=== PATIENT | female | born 1975 | race Caucasian/White ===

== ENCOUNTER 2017-01-30 10:14 | Emergency (ER) | payer BC ==
[2017-01-30 10:27] VITALS: BP 122/67
--- NOTE | 2017-01-30 11:56 | RAD ---
INDICATION: Left leg injury COMPARISON: None TECHNIQUE: AP and lateral views were obtained. FINDINGS: The bony structures, joint spaces, and soft tissues are normal for age. IMPRESSION: NEGATIVE EXAMINATION.
--- NOTE | 2017-01-30 12:36 | ED ---
Lower Extremity - HPI Summary HPI Summary: Patient presents to the ED with left goldstein pain s/p fall this morning. No bleeding is noted. Small hematoma with discoloration just inferior to the left knee. Denies numbness, tingling. Denies temperature changes to the lower extremity. Pain is 5/10, constant and better with motrin. No previous injury to the leg. She is otherwise healthy and denies anticoagulants. Denies hitting head or LOC. - History of Current Complaint Chief Complaint: EDExtremityLower Stated Complaint: FALL/LT LEG PAIN Hx Obtained From: Patient Hx Last Menstrual Period: 01/22/16 Mechanism Of Injury: Direct Blow Onset of Pain: Immediate Onset/Duration: Minutes Severity Initially: Mild Severity Currently: Mild Pain Intensity: 7 Pain Scale Used: 0-10 Numeric Timing: Constant Location: Is Discrete @ - left goldstein pain Associated Signs And Symptoms: Positive: Bruising Aggravating Factor(s): Standing, Ambulation Alleviating Factor(s): Rest Able to Bear Weight: Yes - Risk Factors Gout Risk Factors: Negative DVT Risk Factors: Negative Septic Arthritis Risk Factor: Negative - Allergies/Home Medications Allergies/Adverse Reactions: Allergies Allergy/AdvReac Type Severity Reaction Status Date / Time Chlorhexidine Allergy Mild Rash Verified 06/15/16 10:07 [From ChloraPrep One Step] Isopropyl Alcohol Allergy Mild Rash Verified 06/15/16 10:07 [From ChloraPrep One Step] Amoxicillin Allergy Vomiting Verified 06/15/16 10:07 Latex Allergy Rash Verified 06/15/16 10:07 Tramadol Allergy Vomiting Verified 06/15/16 10:07 Adhesive Tape AdvReac NASTY RASH Verified 06/15/16 10:07 Codeine AdvReac Nausea Verified 06/15/16 10:07 VOMITING PAIN MEDICATION AdvReac Severe Nausea And Uncoded 06/15/16 10:07 Vomiting PMH/Surg Hx/FS Hx/Imm Hx Previously Healthy: Yes Endocrine/Hematology History: Denies: Hx Diabetes, Hx Thyroid Disease Cardiovascular History: Denies: Hx Hypertension, Hx Pacemaker/ICD Respiratory History: Reports: Other Respiratory Problems/Disorders - DX WITH WHOOPING COUGH Denies: Hx Asthma, Hx Chronic Obstructive Pulmonary Disease (COPD) GI History: Reports: Other GI Disorders - HX OF INTERNAL HEMORRHOID, NO PROBLEMS NOW Denies: Hx Ulcer History: Denies: Hx Renal Disease Musculoskeletal History: Denies: Hx Rheumatoid Arthritis, Hx Osteoporosis Sensory History: Reports: Hx Contacts or Glasses - BOTH Denies: Hx Hearing Aid Opthamlomology History: Reports: Hx Contacts or Glasses - BOTH Psychiatric History: Denies: Hx Panic Disorder - Surgical History Surgery Procedure, Year, and Place: 2 C-SECTIONS [place], [place]. UMBILICAL HERNIA [id number] x3. RIGHT LOWER LEG FX 1982; -NO METAL Hx Anesthesia Reactions: No - Immunization History Hx Pertussis Vaccination: No Immunizations Up to Date: Unable to Obtain/Confirm Infectious Disease History: No Infectious Disease History: Denies: Hx Clostridium Difficile, Hx Hepatitis, Hx Human Immunodeficiency Virus (HIV), Hx of Known/Suspected MRSA, Hx Shingles, Hx Tuberculosis, Hx Known/ Suspected VRE, Hx Known/Suspected VRSA, History Other Infectious Disease, Traveled Outside the in Last 30 Days - Family History Known Family History: Positive: Hypertension Family History: no parts puller issues in family history - Social History Occupation: Employed Part-time Lives: With Family Alcohol Use: Occasionally Hx Substance Use: No Substance Use Type: Reports: None Hx Tobacco Use: Yes Smoking Status (MU): Former Smoker Type: Cigarettes Amount Used/How Often: SOCIALLY IN COLLEGE ONLY [id number], 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 Review of Systems Constitutional: Negative Negative: Fever, Chills, Fatigue Eyes: Negative Cardiovascular: Negative Respiratory: Negative Genitourinary: Negative Positive: no symptoms reported, see HPI Positive: Arthralgia - left goldstein pain Skin: Negative Neurological: Negative All Other Systems Reviewed And Are Negative: Yes Physical Exam Triage Information Reviewed: Yes Vital Signs On Initial Exam: Initial Vitals Temp Pulse Resp BP Pulse Ox 99.4 F 86 20 122/67 99 01/30/17 10:25 01/30/17 10:25 01/30/17 10:25 01/30/17 10:25 01/30/17 10:25 Vital Signs Reviewed: Yes Appearance: Positive: Well-Appearing, Well-Nourished Skin: Positive: Warm, Skin Color Reflects Adequate Perfusion, Other - ecchymosis just distal to the left knee Head/Face: Positive: Normal Head/Face Inspection Eyes: Positive: EOMI, ALEKSANDRA, Conjunctiva Clear Neck: Positive: Supple, No Lymphadenopathy Respiratory/Lung Sounds: Positive: Clear to Auscultation, Breath Sounds Present Cardiovascular: Positive: RRR, Pulses are Symmetrical in both Upper and Lower Extremities Musculoskeletal: Positive: Pain @ - left goldstein pain Neurological: Positive: Normal, Sensory/Motor Intact, Alert, Oriented to Person Place, Time, Speech Normal Psychiatric: Positive: Normal AVPU Assessment: Alert Diagnostics - Vital Signs Vital Signs Temp Pulse Resp BP Pulse Ox 01/30/17 10:25 99.4 F 86 20 122/67 99 - Laboratory Lab Statement: Any lab studies that have been ordered have been reviewed, and results considered in the medical decision making process. Lower Extremity Course/Dx - Course Course Of Treatment: Patient presents to the ED with left goldstein pain s/p fall this morning. Notes to some ecchymosis, slight swelling and small laceation which is superficial and does not need repair. Bleeding is controlled at arrival. 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 She understands plan and is OK with discharge. - Diagnoses Differential Diagnosis/HQI/PQRI: Positive: Contusion Provider Diagnoses: Contusion Discharge - Discharge Plan Condition: Stable Disposition: HOME Patient Education Materials: Contusion in Adults (ED) Referrals: Marisa Mendoza MD [Primary Care Provider] - Additional Instructions: Ibuprofen 600mg three times daily Stay off the leg until you feel less discomfort Ice Elevate Bear weight as tolerated Images - Images Full Body (No Head): 1 - left goldstein pain
== END 2017-01-30 12:46 | disposition home or self-care (01) ==
LOC: ED 10:14
DX: S80.12XA Contusion of left lower leg, initial encounter (principal); M79.605 Pain in left leg; Z87.891 Personal history of nicotine dependence; W19.XXXA Unspecified fall, initial encounter; Y93.9 Activity, unspecified; Y92.9 Unspecified place or not applicable
CPT/HCPCS: 99281

== ENCOUNTER 2017-12-12 07:11 | Emergency (ER) | payer BC, OTHER ==
[2017-12-12 07:23] VITALS: BP 103/69
--- NOTE | 2017-12-12 07:45 | UC ---
Bite Injury/Animal HPI - HPI Summary HPI Summary: A 42 y/o F presents to [facility] s/p bat exposure 3 weeks ago on 11/23/17. Pt was advised by her doctor to get rabies treatment. The pt woke up in the middle of the night and her cat had brought a bat into her bedroom. She's unsure if the bat was caught by the cat inside or outside. She thought the bat appeared healthy. Pt did handle the bat when it landed on her and when she removed it from the room. She saw no visible bites on herself. She does state that there has been a confirmed bat with rabies in the area she lives. - History of Current Complaint Chief Complaint: UCBiteInjury Stated Complaint: RABIES Time Seen by Provider: 12/12/17 07:37 Hx Obtained From: Patient Hx Last Menstrual Period: 01/22/16 Severity Currently: None Pain Intensity: 0 Pain Scale Used: 0-10 Numeric Onset/Duration: Lasting Weeks, Still Present Type of Bite: Wild Animal - Bat Animal Available for Observation: No - Allergies/Home Medications Allergies/Adverse Reactions: Allergies Allergy/AdvReac Type Severity Reaction Status Date / Time amoxicillin Allergy Vomiting Verified 12/12/17 07:25 codeine Allergy Nausea And Verified 12/12/17 07:25 Vomiting latex Allergy Rash Verified 12/12/17 07:25 tramadol Allergy Vomiting Verified 12/12/17 07:25 Adhesive Tape AdvReac NASTY RASH Verified 12/12/17 07:25 chloraprep Allergy Rash Uncoded 12/12/17 07:25 PAIN MEDICATION AdvReac Severe Nausea And Uncoded 12/12/17 07:25 Vomiting PMH/Surg Hx/FS Hx/Imm Hx Previously Healthy: No Cardiovascular History: Other Other Cardiovascular History: neg: HTN; pos: benign heart murmur Other Respiratory History: neg: COPD - Surgical History Surgical History: Yes Surgery Procedure, Year, and Place: 2 C-SECTIONS [place], [place]. UMBILICAL HERNIA [phone] x3. 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 When Did the Patient Quit Smoking/Using Tobacco: 2000 Review of Systems Constitutional: Other - neg: fever Respiratory: Other - neg: cough All Other Systems Reviewed And Are Negative: Yes Physical Exam - Summary Physical Exam Summary: General: well-appearing, no pain distress Skin: warm, color reflects adequate perfusion, dry; some abrasions on bilat knuckles Head: normal Eyes: EOMI, ALEKSANDRA ENT: normal Neck: supple, nontender Respiratory: CTA, breath sounds present Cardiovascular: RRR Abdomen: soft, nontender Bowel: present Musculoskeletal: normal, strength/ROM intact Neurological: sensory/motor intact, A&O x3 Psychological: affect/mood appropriate Triage Information Reviewed: Yes Vital Signs: Initial Vital Signs Temp 97.7 F 12/12/17 07:19 Pulse 86 12/12/17 07:19 Resp 18 12/12/17 07:19 BP 103/69 12/12/17 07:19 Pulse Ox 99 12/12/17 07:19 Vital Signs Reviewed: Yes Bite Injury Course/Dx - Course Course Of Treatment: BP noted. Medications reviewed. Allergies noted. GIVEN RIG AND FIRST RABIES VACCINE IN CLINIC. - Differential Dx/Diagnosis Provider Diagnoses: RABIES VACCINE AND RIG. POSSIBLE RABIES EXPOSURE Discharge - Sign-Out/Discharge Documenting (check all that apply): Patient Departure - DC All imaging exams completed and their final reports reviewed: No Studies - Discharge Plan Condition: Stable Disposition: HOME Patient Education Materials: Rabies Immune Globulin (By injection), Rabies (ED) , Rabies Vaccine (ED) Referrals: [facility] [Outside] Marisa Mendoza MD [Primary Care Provider] - Additional Instructions: FOLLOW UP [facility]. GET RECHECKED FOR ANY WORSENING OF YOUR CONDITION OR QUESTIONS OR CONCERNS. - Billing Disposition and Condition Condition: STABLE Disposition: Home - Attestation Statements Document Initiated by Scribe: Yes Documenting Scribe: Keyla Brown Provider For Whom Nicolibgalen is Documenting (Include Credential): Leobardo Chao MD Scribe Attestation: Keyla Carrasco scribed for Leobrado Chao MD on 12/12/17 at 0930. Scribe Documentation Reviewed: Yes Provider Attestation: The documentation as recorded by the Keyla briscoe accurately reflects the service I personally performed and the decisions made by me, Leobardo Chao MD
[2017-12-12] MEDS ORDERED: Rabies VIRUS VACCINE (Imovax)* 2.5 UNIT/ML 1 ML IM ONE (08:05)
[2017-12-12] MEDS ORDERED: Rabies Immune Globulin 10 ML* 150 UNIT/ML VIAL IM ONE (08:05)
[2017-12-12] MEDS ORDERED: Tetan/Diph/Pertus SYR(Tdap)* 0.5 ML SYR(BOOSTRIX) use SYR IM ONE (08:07)
== END 2017-12-12 08:55 | disposition home or self-care (01) ==
LOC: UCEAST 07:11
DX: Z20.3 Contact with and (suspected) exposure to rabies (principal); Z88.0 Allergy status to penicillin; Z23 Encounter for immunization; Z88.5 Allergy status to narcotic agent; Z91.040 Latex allergy status; Z91.09 Other allergy status, other than to drugs and biological substances; Z88.8 Allergy status to other drugs, medicaments and biological substances; Z88.6 Allergy status to analgesic agent; Z87.891 Personal history of nicotine dependence
CPT/HCPCS: 90375; 90471; 90472; 90715; 96372; 99211; G0463

== ENCOUNTER 2018-03-27 12:10 | Emergency (ER) | payer BC ==
[2018-03-27 14:24] VITALS: BP 116/72
--- NOTE | 2018-03-27 22:59 | UC ---
Hip/Pelvis Pain - HPI Summary HPI Summary: WHILE RUNNING LAST NIGHT PT HEARD AND FELT A POP IN HER RIGHT HIP. HAD IMMEDIATE , SEVERE PAIN AND WAS BARELY ABLE TO MAKE IT BACK HOME. PAIN IMPROVED WITH IBUPROFEN. DUE TO SEVERITY OF PAIN PT IS CONCERNED ABOUT A POSSIBLE MUSCLE TEAR. IS REQUESTING AN ULTRASOUND.DAY - History Of Current Complaint Chief Complaint: UCLowerExtremity Stated Complaint: HIP INJURY Time Seen by Provider: 03/27/18 14:34 Hx Obtained From: Patient Hx Last Menstrual Period: 03/16/18 Onset/Duration: Sudden Onset, Lasting Days - 1 DAY, Still Present Timing: Constant Severity Initially: Moderate Severity Currently: Moderate Pain Intensity: 0 Pain Scale Used: 0-10 Numeric Location: Discrete At: - RIGHT LATERAL HIP Character Of Pain: Sharp Aggravating Factor(s): Weight Bearing Alleviating Factor(s): OTC Medications - IBUPROFEN Associated Signs And Symptoms: Negative: Swelling, Redness, Bruising, Weakness, Knee Pain - Allergies/Home Medications Allergies/Adverse Reactions: Allergies Allergy/AdvReac Type Severity Reaction Status Date / Time amoxicillin Allergy Vomiting Verified 03/27/18 14:27 codeine Allergy Nausea And Verified 03/27/18 14:27 Vomiting latex Allergy Rash Verified 03/27/18 14:27 tramadol Allergy Vomiting Verified 03/27/18 14:27 Adhesive Tape AdvReac NASTY RASH Verified 03/27/18 14:27 narcotics Allergy Severe n/v Uncoded 03/27/18 14:27 chloraprep Allergy Rash Uncoded 03/27/18 14:27 PMH/Surg Hx/FS Hx/Imm Hx Previously Healthy: Yes - Surgical History Surgical History: Yes Surgery Procedure, Year, and Place: 2 C-SECTIONS [place]. UMBILICAL HERNIA [id number] x3. 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 Negative: Arthralgia, Decreased ROM, Edema Physical Exam Triage Information Reviewed: Yes Appearance: Well-Nourished, Pain Distress - MODERATE PAIN WITH WEIGHT BEARING AND AMBULATION Vital Signs: Initial Vital Signs Temp 98 F 03/27/18 14:17 Pulse 68 03/27/18 14:17 Resp 16 03/27/18 14:17 BP 116/72 03/27/18 14:17 Pulse Ox 100 03/27/18 14:17 Vital Signs Reviewed: Yes Eyes: Positive: Conjunctiva Clear ENT: Positive: Hearing grossly normal Neck: Positive: Supple Respiratory: Positive: No respiratory distress, No accessory muscle use Cardiovascular: Positive: Pulses Normal Abdomen Description: Positive: Soft Musculoskeletal: Positive: ROM Intact, No Edema, Other: - FOCAL TENDERNESS RIGHT ANTEROLATERAL HIP. NOT TENDER OVER GREATER TROCHANTER, INGUINAL MUSCLE OR ILIAC CREST. NO BRUISING OR SWELLING Neurological: Positive: Alert Psychological: Positive: Age Appropriate Behavior Skin: Negative: Rashes Hip Injury Course/Dx - Course Course Of Treatment: PATIENT IS CONCERNED ABOUT A TFL INJURY AND IS REQUESTING AN ULTRASOUND. UNABLE TO PERFORM THIS EXAM IN THE . RECOMMENDED [facility] EVALUATION. APPOINTMENT MADE FOR PATIENT WITH DR. PERSON TOMORROW AT 1:30 PM. IN THE MEANTIME PATIENT WILL TAKE OTC ANTI-INFLAMMATORIES FOR DISCOMFORT. REST AND ICE. - Differential Dx/Diagnosis Provider Diagnosis: Acute right hip pain Discharge - Sign-Out/Discharge Documenting (check all that apply): Patient Departure All imaging exams completed and their final reports reviewed: No Studies - Discharge Plan Condition: Stable Disposition: HOME Patient Education Materials: Hip Pain (ED) Referrals: Marisa Mendoza MD [Primary Care Provider] - If Needed Martha Person MD [Medical Doctor] - (YOU HAVE AN APPT TOMORROW AT 1:30PM) Additional Instructions: GIVEN YOUR CONCERN FOR TFL INJURY WE HAVE SCHEDULED AN APPT FOR YOU TOMORROW WITH DR. PERSON FROM [facility]. SHE WILL BE ABLE TO DO A COMPLETE MUSCULOSKELETAL EXAM AND DISCUSS EVALUATION AND TREATMENT OPTIONS. IN THE MEANTIME - REST, OTC IBUPROFEN NEEDED FOR DISCOMFORT. - Billing Disposition and Condition Condition: STABLE Disposition: Home
== END 2018-03-27 15:29 | disposition home or self-care (01) ==
LOC: UCEAST 12:10
DX: M25.551 Pain in right hip (principal); Y93.02 Activity, running; Z88.0 Allergy status to penicillin; Z88.5 Allergy status to narcotic agent; Z87.891 Personal history of nicotine dependence
CPT/HCPCS: 99212; G0463

== ENCOUNTER 2019-05-19 12:08 | Emergency (ER) | payer BC ==
[2019-05-19 14:02] LABS: ABS Basophils 0.1 10^3/ul (0-0.2); ABS Eosinophils 0.1 10^3/ul (0-0.6); ABS Lymphocytes 1.3 10^3/ul (1.0-4.8); ABS Monocytes 0.4 10^3/ul (0-0.8); ABS Neutrophils 6.2 10^3/ul (1.5-7.7); Eosinophil % 1.1 %; Hematocrit 40 % (35-47); Hemoglobin 13.7 g/dL (12.0-16.0); Lymphocyte % 16.2 %; Mean Corpuscular HGB Conc 34 g/dL (31-36); Mean Corpuscular Hemoglobin 30 pg (27-31); Mean Corpuscular Volume 88 fL (80-97); Mean Platelet Volume 8.4 fL (7.4-10.4); Platelet Count 252 10^3/uL (150-450); Red Blood Count 4.61 10^6 /uL (3.70-4.87); Red Cell Distribution Width 13 % (10-15)
[2019-05-19 14:29] LABS: ALT 19 U/L (7-52); AST 18 U/L (13-39); Albumin 4.5 g/dL (3.2-5.2); Albumin/Globulin Ratio 1.9 (1-3); Alkaline Phosphatase 45 U/L (34-104); Anion Gap 4 mmol/L (2-11); BUN/Creatinine Ratio 18.6 (8-20); Blood Urea Nitrogen 13 mg/dL (6-24); C Reactive Protein < 1.00 mg/L (<8.01); CO2 Carbon Dioxide 28 mmol/L (22-32); Calcium 9.3 mg/dL (8.6-10.3); Chloride 105 mmol/L (101-111); EGFR Non-African American 91.8 (>60); Globulin 2.4 g/dL (2-4); Glucose 125 mg/dL (70-100); Potassium 3.8 mmol/L (3.5-5.0); Sodium 137 mmol/L (135-145); Total Protein 6.9 g/dL (6.4-8.9)
[2019-05-19 14:31] LABS: HCG Pregnancy < 0.60 mIU/mL
--- NOTE | 2019-05-19 15:49 | ED ---
Abdominal Pain/Female - HPI Summary HPI Summary: Patient complains of right lower quadrant pain 2 days, intermittent low-grade fever, fatigue. States history of ovarian cysts. Denies cough, sore throat, CP , SOB, N/3/D, change in urine, change in BM, vaginal symptoms. Denies medical history. Abdominal surgical history is hernia repair 2, laparoscopic 1. - History of Current Complaint Chief Complaint: EDOBProblems Stated Complaint: LOWER ABD PAIN/LOW GRADE FEVER PER PT Time Seen by Provider: 05/19/19 15:35 Hx Obtained From: Patient Hx Last Menstrual Period: 03/16/18 Onset/Duration: Gradual Onset, Lasting Days Timing: Constant Severity Initially: Severe Severity Currently: None Pain Intensity: 0 Pain Scale Used: 0-10 Numeric Location: Discrete At: RLQ Radiates: No Character: Sharp Aggravating Factor(s): Nothing Alleviating Factor(s): Spontaneous Resolution Associated Signs and Symptoms: Positive: Negative Allergies/Adverse Reactions: Allergies Allergy/AdvReac Type Severity Reaction Status Date / Time amoxicillin Allergy Vomiting Verified 05/19/19 12:15 codeine Allergy Nausea And Verified 05/19/19 12:15 Vomiting latex Allergy Rash Verified 05/19/19 12:15 tramadol Allergy Vomiting Verified 05/19/19 12:15 Adhesive Tape AdvReac NASTY RASH Verified 05/19/19 12:15 narcotics Allergy Severe n/v Uncoded 05/19/19 12:15 chloraprep Allergy Rash Uncoded 05/19/19 12:15 PMH/Surg Hx/FS Hx/Imm Hx Endocrine/Hematology History: Denies: Hx Diabetes, Hx Thyroid Disease Cardiovascular History: Denies: Hx Hypertension, Hx Pacemaker/ICD Respiratory History: Reports: Other Respiratory Problems/Disorders - DX WITH WHOOPING COUGH Denies: Hx Asthma, Hx Chronic Obstructive Pulmonary Disease (COPD) GI History: Reports: Other GI Disorders - HX OF INTERNAL HEMORRHOID, NO PROBLEMS NOW Denies: Hx Ulcer History: Denies: Hx Renal Disease Musculoskeletal History: Denies: Hx Rheumatoid Arthritis, Hx Osteoporosis Sensory History: Reports: Hx Contacts or Glasses - BOTH Opthamlomology History: Reports: Hx Contacts or Glasses - BOTH EENT History: Denies: Hx Deafness Neurological History: Denies: Hx Dementia Psychiatric History: Denies: Hx Panic Disorder - Cancer History Hx Chemotherapy: No Hx Radiation Therapy: No - Surgical History Surgery Procedure, Year, and Place: 2 C-SECTIONS [place], [place]. UMBILICAL HERNIA [phone] x3. RIGHT LOWER LEG FX 1982; -NO METAL Hx Anesthesia Reactions: No Infectious Disease History: No Infectious Disease History: Denies: Hx Clostridium Difficile, Hx Hepatitis, Hx Human Immunodeficiency Virus (HIV), Hx of Known/Suspected MRSA, Hx Shingles, Hx Tuberculosis, Hx Known/ Suspected VRE, Hx Known/Suspected VRSA, History Other Infectious Disease, Traveled Outside the [place] in Last 30 Days - Family History Known Family History: Positive: Hypertension, Other - breast [place] Family History: no copyright clerk issues in family history - Social History Alcohol Use: Occasionally Hx Substance Use: No Substance Use Type: Reports: None Hx Tobacco Use: Yes Smoking Status (MU): Former Smoker Type: Cigarettes Amount Used/How Often: SOCIALLY IN COLLEGE ONLY [id number], 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 Review of Systems Constitutional: Negative Eyes: Negative ENT: Negative Cardiovascular: Negative Respiratory: Negative Positive: Abdominal Pain Genitourinary: Negative Musculoskeletal: Negative Skin: Negative Neurological: Negative Psychological: Normal All Other Systems Reviewed And Are Negative: Yes Physical Exam Triage Information Reviewed: Yes Vital Signs On Initial Exam: Initial Vitals Temp Pulse Resp BP Pulse Ox 99.1 F 86 19 129/82 98 05/19/19 12:12 05/19/19 12:12 05/19/19 12:12 05/19/19 12:12 05/19/19 12:12 Vital Signs Reviewed: Yes Appearance: Positive: Well-Appearing Skin: Positive: Warm Head/Face: Positive: Normal Head/Face Inspection Eyes: Positive: Normal Neck: Positive: Supple Respiratory/Lung Sounds: Positive: Clear to Auscultation Cardiovascular: Positive: Normal Abdomen Description: Positive: Other: - Right lower quadrant tenderness mild. Otherwise normal abdominal exam. Musculoskeletal: Positive: Normal Neurological: Positive: Normal Psychiatric: Positive: Normal AVPU Assessment: Alert - [place] Coma Scale Best Eye Response: 4 - Spontaneous Best Motor Response: 6 - Obeys Commands Best Verbal Response: 5 - Oriented Coma Scale Total: 15 Procedures - Sedation Patient Received Moderate/Deep Sedation with Procedure: No Diagnostics - Vital Signs Vital Signs Temp Pulse Resp BP Pulse Ox 05/19/19 15:35 62 140/77 99 05/19/19 15:13 99.1 F 72 14 120/75 100 05/19/19 13:27 98.6 F 67 19 142/109 97 05/19/19 12:12 99.1 F 86 19 129/82 98 - Laboratory Lab Results: Lab Results 05/19/19 05/19/19 05/19/19 Range/Units 13:53 13:53 13:53 WBC 8.0 (3.5-10.8) 10^3/uL RBC 4.61 (3.70-4.87) 10^6 /uL Hgb 13.7 (12.0-16.0) g/dL Hct 40 (35-47) % MCV 88 (80-97) fL MCH 30 (27-31) pg MCHC 34 (31-36) g/dL RDW 13 (10-15) % Plt Count 252 (150-450) 10^3/uL MPV 8.4 (7.4-10.4) fL Neut % (Auto) 77.2 % Lymph % (Auto) 16.2 % Posey % (Auto) 4.8 % Eos % (Auto) 1.1 % Baso % (Auto) 0.7 % Absolute Neuts (auto) 6.2 (1.5-7.7) 10^3/ul Absolute Lymphs (auto) 1.3 (1.0-4.8) 10^3/ul Absolute Monos (auto) 0.4 (0-0.8) 10^3/ul Absolute Eos (auto) 0.1 (0-0.6) 10^3/ul Absolute Basos (auto) 0.1 (0-0.2) 10^3/ul Absolute Nucleated RBC 0.0 10^3/ul Nucleated RBC % 0.0 Sodium 137 (135-145) mmol/L Potassium 3.8 (3.5-5.0) mmol/L Chloride 105 (101-111) mmol/L Carbon Dioxide 28 (22-32) mmol/L Anion Gap 4 (2-11) mmol/L BUN 13 (6-24) mg/dL Creatinine 0.70 (0.51-0.95) mg/dL Est GFR ( Amer) 111.0 (>60) Est GFR (Non-Af Amer) 91.8 (>60) BUN/Creatinine Ratio 18.6 (8-20) Glucose 125 H (70-100) mg/dL Lactic Acid 0.7 (0.5-2.0) mmol/L Calcium 9.3 (8.6-10.3) mg/dL Total Bilirubin 0.40 (0.2-1.0) mg/dL AST 18 (13-39) U/L ALT 19 (7-52) U/L Alkaline Phosphatase 45 (34-104) U/L C-Reactive Protein < 1.00 (<8.01) mg/L Total Protein 6.9 (6.4-8.9) g/dL Albumin 4.5 (3.2-5.2) g/dL Globulin 2.4 (2-4) g/dL Albumin/Globulin Ratio 1.9 (1-3) Lipase 30 (11.0-82.0) U/L Beta HCG, Quant < 0.60 mIU/mL Result Diagrams: 05/19/19 13:53 05/19/19 13:53 Lab Statement: Any lab studies that have been ordered have been reviewed, and results considered in the medical decision making process. Abdominal Pain Fem Course/Dx - Course Course Of Treatment: Patient complains of right lower quadrant pain 2 days, intermittent low-grade fever, fatigue. States history of ovarian cysts. Denies cough, sore throat, CP, SOB, N/3/D, change in urine, change in BM, vaginal symptoms. Denies medical history. Abdominal surgical history is hernia repair 2, laparoscopic 1. Vital signs within normal limits. Labs unremarkable. Ultrasound unremarkable. Patient had to leave to go bulk picker her kids prior to completion of read on ultrasound. Signed out AMA. - Diagnoses Provider Diagnoses: Abdominal pain Discharge ED - Sign-Out/Discharge Documenting (check all that apply): Patient Departure - Discharge Plan Condition: Stable Disposition: AGAINST MEDICAL ADVICE Patient Education Materials: Acute Abdominal Pain (ED) Referrals: Marisa Mendoza MD [Primary Care Provider] - Additional Instructions: Return to the ED for any new or worsening symptoms. - Billing Disposition and Condition Condition: STABLE Disposition: Against Medical Advice - Attestation Statements Provider Attestation: I was available for consultation for this patient. I did not evaluate the patient, or participate in any medical decision making or disposition decisions unless I am specifically named in the chart as having consulted on the patient. If I have consulted on the patient, please see my own ED note on the patient encounter. Batsheva Burgos MD Reviewed US after DC which shows follicles, no torsion or TOA.
[2019-05-19 17:49] VITALS: BP 0/0
== END 2019-05-19 17:47 | disposition left against medical advice (07) ==
LOC: ED 12:08
DX: R10.31 Right lower quadrant pain (principal); Z87.891 Personal history of nicotine dependence; Z88.5 Allergy status to narcotic agent; Z88.0 Allergy status to penicillin; Z88.8 Allergy status to other drugs, medicaments and biological substances; Z91.040 Latex allergy status
CPT/HCPCS: 36415; 76830; 80053; 83605; 83690; 84702; 85025; 86140; 99282